=== PATIENT | female | born 1955 | race Caucasian/White ===

== ENCOUNTER 2017-01-29 05:17 | Emergency (ER) | payer OTHER ==
[~2017-01-29] VITALS: Ht 157.5 cm; Wt 43.0 kg
[~2017-01-29 05:17] MED LIST: ALBU8.5H3 INH; AZIT250T94 PO; BECL8.7A INH; PRED20TA PO; TRAM50TA2 PO
[2017-01-29 05:21] VITALS: Ht 157.5 cm; Wt 43.0 kg
[2017-01-29] MEDS ORDERED: ALBUTEROL 0.083% (NEB) 2.5 MG/3 ML AMP HHN STA (05:29)
[2017-01-29] MEDS ORDERED: IPRATROPIUM (NEB) 0.5 MG/2.5 ML AMP HHN ONE (05:30)
[2017-01-29] MEDS ORDERED: ALBU8.5H3 INH (05:39)
[2017-01-29] MEDS ORDERED: BECL8.7A INH (05:39)
[2017-01-29] MEDS ORDERED: PRED20TA PO (05:39)
--- NOTE | 2017-01-29 05:43 | ERD ---
ER Documentation Chief Complaint Date/Time DATE: 01/29/17 TIME: 05:41 Chief Complaint cough/congestion x 2 days. wheezing both lungs (ANN MACKAY PA-C) HPI 61-year-old female with a history of asthma comes emergency department with URI symptoms for the past 2 days and exacerbation of her asthma symptoms. Patient reports that she uses her albuterol inhaler approximately 2 times a day and continues to have wheezing. She denies chest pain or fevers or chills. (ANN MACKAY PA-C) ROS All systems reviewed and are negative except as per history of present illness. (ANN MACKAY PA-C) Medications Home Meds Active Scripts Azithromycin* (Zithromax*) 500 Mg Tablet, 500 MG PO DAILY for 5 Days, TAB Prov:MARIUSZ THOMAS PA-C 01/29/17 Albuterol Sulfate* (Proair HFA*) 8.5 Gm Hfa.aer.ad, 2 PUFF INH Q4, #1 INHALER Prov:ANN MACKAY PA-C 01/29/17 Azithromycin* (Zithromax*) 250 Mg Tablet, 250 MG PO .ZPACK DIRECTED, #6 TAB TAKE 500 MG (2 TABS) THE FIRST DAY THEN 250 MG (1 TAB) DAYS 2-5 Prov:ANN MACKAY PA-C 08/12/16 Albuterol Sulfate* (Proair HFA*) 8.5 Gm Hfa.aer.ad, 2 PUFF INH Q4, #1 INHALER Prov:ANN MACKAY PA-C 08/12/16 Tramadol HCl (Tramadol HCl) 50 Mg Tablet, 50 MG PO Q4 Y for PAIN, #16 TAB Prov:IZABELLA CARLISLE MD 12/27/15 Azithromycin* (Zithromax*) 250 Mg Tablet, 250 MG PO .ZPACK DIRECTED, #6 TAB TAKE 500 MG (2 TABS) THE FIRST DAY THEN 250 MG (1 TAB) DAYS 2-5 Prov:IZABELLA CARLISLE MD 12/27/15 Prednisone* (Prednisone*) 20 Mg Tab, 40 MG PO DAILY for 3 Days, TAB Start 12/28/2015 Prov:IZABELLA CARLISLE MD 12/27/15 Prednisone* (Prednisone*) 20 Mg Tab, 60 MG PO DAILY for 4 Days, TAB Prov:BARBARA MATTHEWS MD 07/20/15 Azithromycin* (Zithromax*) 250 Mg Tablet, 250 MG PO DAILY for 4 Days, TAB Prov:BARBARA MATTHEWS MD 07/20/15 Reported Medications Beclomethasone Dip* (Qvar 40*) 7.3 Gm Inha, 2 PUFF INH BID, INH 07/20/15 Allergies Allergies: Coded Allergies: hydrocodone (Verified Allergy, Unknown, "FEELS LIKE POISON", 01/29/17) PMhx/Soc History of Surgery: Yes (TUMORS REMOVED FROM BOTH LUNGS) Anesthesia Reaction: No Hx Neurological Disorder: No Hx Respiratory Disorders: Yes (ASTHMA) Hx Cardiac Disorders: No Hx Psychiatric Problems: No Hx Miscellaneous Medical Probl: No Hx Alcohol Use: No Hx Substance Use: No Hx Tobacco Use: No Smoking Status: Never smoker (ANN MACKAY PA-C) Physical Exam Vitals Vital Signs Date Time Temp Pulse Resp B/P Pulse Ox O2 Delivery O2 Flow Rate FiO2 01/29/17 06:16 98.2 89 24 129/89 97 Room Air 01/29/17 05:34 70 18 96 21 01/29/17 05:21 97.8 65 20 111/66 97 (MARIUSZ THOMAS PA-C) Physical Exam General: Well-developed, well-nourished. The patient appears in no acute distress. HEENT: Head is normocephalic, atraumatic. No scleral icterus. Neck: Supple. Nontender. Lungs: Wheezing bilaterally, dry cough noted on exam. There is no labored breathing. No tachypnea. Heart: Regular rate and rhythm. S1 and S2 are normal. No murmurs, gallops, or rubs. Abdomen: Nondistended. Extremities: No clubbing or cyanosis. Moving extremities x 4. No weakness. Neurologic: Alert and oriented 3. No focal deficits. Normal speech and gait. Skin: Normal turgor. No rash or lesions. (NAN MACKAY PA-C) Results 24 hrs Current Medications Medications (Trade) Dose Ordered Sig/Wilian Route PRN Reason Start Time Stop Time Status Last Admin Dose Admin Albuterol (Proventil 0.083% (Neb)) 7.5 mg ONCE STAT HHN 01/29/17 05:29 01/29/17 05:31 DC 01/29/17 05:34 Ipratropium Munson (Atrovent 0.02% (Neb)) 0.5 mg ONCE ONCE HHN 01/29/17 05:30 01/29/17 05:31 DC 01/29/17 05:34 Prednisone (Prednisone) 40 mg ONCE ONCE PO 01/29/17 06:00 01/29/17 06:01 DC 01/29/17 05:38 (MARIUSZ THOMAS PA-C) Procedures/MDM ED course: She was given albuterol 7.5 mg neb solution, as well as Atrovent 0.5 mg. Chest x-ray shows a pulmonary nodule, I have notified the patient of these results. She states that she does see her primary care doctor however because they have moved location she has not been able to see them over 2 months. She is not sure she can get an appointment soon and at this time she requests to get a CT scan in the emergency department. MDM: The patient is a 61-year-old female with a history of asthma who comes in with an acute upper respiratory infection, presumed viral, also comes in with a mild asthma exacerbation. Patient had incidental finding of 2 pulmonary nodules , she states that she is not sure she has primary care follow-up therefore CT scan was ordered of the chest in the ER at this time. Results will be signed out to Mariusz Thomas PA-C. The patient has a differential diagnosis of a viral upper respiratory infection, bacterial upper respiratory infection, bronchitis, pneumonia, pharyngitis, laryngitis, epiglottitis, croup, pneumonia. Patient had a repeat pulmonary examination is normal and she reports improvement of her symptoms, clear breath sounds, normal pulse oximetry, with no corrective measures needed at this time. Fluids, rest, antipyretics were encouraged. (ANN MACKAY PA-C) This is 61 year old female with history of asthma that was passed down from KIAH Mackay presenting to the emergency department with shortness of breath and cough. CXR was done and radiologist stated- probable chronic interstitial lung disease. Possible 1.1 cm right lung nodule. Possible left lower lobe lung nodule also seen. CT is recommended for further evaluation. - therefore a CT of the chest was done. Radiologist stated: Scattered nodular and reticular opacities bilaterally with bronchiectasis. 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 There are areas of distal mucus plugging especially within the right middle lobe and lingula. I have consulted my supervising physician in regards to the CT findings of nodular and reticular opacities, probable MAC infection. He suggested to place patient on azithromycin 500 mg for the next 5 days and given a prescription for albuterol and have her follow-up with her primary care physician within next couple days for bronchial cultures. I have discussed the condition with the patient and patient states that she will be able to follow- up with her primary care physician in the next couple days. I discussed with her to return to the ER for any worsening signs or symptoms. At disposition, patient has stable vital signs. She stable for discharge her home. Discussed return to the ER for any worsening sinus symptoms. She understands and agrees with this plan (MARIUSZ THOMAS PA-C) Departure Diagnosis: Primary Impression: Asthma exacerbation Additional Impression: Pulmonary nodule Condition: Good Patient Instructions: Asthma Medications Referrals: [facility] (PCP) Additional Instructions: Llame al doctor MAANA y manuel jack LOVE PARA DENTRO DE 1-2 ANDERSON.Dgale a la secretaria que nosotros le instruimos hacer esta love.Avise o llame si brambila condicin se empeora antes de la love. Regresa aqui si peor o no mejor. ANN MACKAY PA-C January 29, 2017 05:43 MARIUSZ THOMAS PA-C January 29, 2017 08:08
[2017-01-29] MEDS ORDERED: predniSONE 20 MG TAB PO ONE (06:00)
[2017-01-29 06:16] VITALS: BP 129/89; PULSE 89; RESP 24; TEMP 98.2
--- NOTE | 2017-01-29 06:18 | RADRPT ---
PROCEDURE: XR Chest. CLINICAL INDICATION: Cough, asthma TECHNIQUE: Portable single view of the chest COMPARISON: 08/12/2016 FINDINGS: The heart size remains within normal limits. Diffusely increased interstitial markings and peribron chial thickening is again seen. Nodular opacities in the upper lobes are likely similar to prior. Asymmetric nipple shadows are again seen. No definite acute infiltrate, pleural effusion, or overt congestive heart failure. 1.1 cm nodular density in the lateral right lung inferior to the level of the hilum is again seen. This does not appear to represent the patient's nipple. A clip overlies the lower left paraspinal region. Increased soft tissue density along the lateral left heart border is also again seen and could represent an underlying lung nodule as well. IMPRESSION: Probable chronic interstitial lung disease. Possible 1.1 cm right lung nodule. Possible left lower lobe lung nodule also seen. CT is recommended for further evaluation. Results were called to Teena Mackay Pa-c at 01/29/2017 6:15:38 AM RPTAT: HLBE Physician Natalie Date Time Electronically viewed and signed by Tahira Weinstein Physician on 01/29/2017 06:17 LE/
--- NOTE | 2017-01-29 06:51 | RADRPT ---
PROCEDURE: CT Chest without contrast. CLINICAL INDICATION: Shortness of breath. TECHNIQUE: CT scan of the chest was performed on a multi-detector high-resolution CT scanner. Co ntiguous axial images were obtained from the lung apices to the upper abdomen without intravenous co ntrast. Coronal and sagittal reformatted images were also obtained. Images were reviewed on the [employer] workstation. One or more of the following dose reduction techniques were used: - Automated exposure control. - Adjustment of the mA and/or kV according to patient size. - Use of iterative reconstruction technique. Exam CTD/vol = 2.83 mGy. Total exam DLP = 113.36 mGy-cm. COMPARISON: Correlation is made with the chest x-ray done 01/29/2017. FINDINGS: The visualized thyroid gland is unremarkable. There are no enlarged axillary lymph nodes. There ar e no enlarged mediastinal or hilar lymph nodes; however, study limited by lack of intravenous contra st. The heart and aorta are unremarkable. There is no pericardial thickening or effusion. There are scattered nodular and reticular opacities bilaterally. There are mild bronchiectatic barrios ges bilaterally especially within the right middle lobe and lingula with distal mucus plugging. Ther e is no pleural effusion. The osseous structures are unremarkable. Limited evaluation of the upper abdomen is unremarkable. IMPRESSION: Scattered nodular and reticular opacities bilaterally with bronchiectasis. Findings are compatible w ith Mycobacterium avium-intracellulare infection. There are areas of distal mucus plugging especial ly within the right middle lobe and lingula. .Roni Lopez MD, MD Date Time Electronically viewed and signed by .Roni Lopez MD, MD on 01/29/2017 06:51 .T/
[2017-01-29] MEDS ORDERED: AZIT500T3 PO (07:07)
== END 2017-01-29 07:15 | disposition home or self-care (01) ==
LOC: FTE 05:17
DX: J45.901 Unspecified asthma with (acute) exacerbation (principal); R91.8 Other nonspecific abnormal finding of lung field
CPT/HCPCS: 71010; 71250; 94664; J7512; Z7502; Z7610

== ENCOUNTER 2018-02-01 21:46 | Inpatient (IN) | END 2018-02-04 13:32 | disposition home or self-care (01) | DRG 190 ==

== ENCOUNTER 2018-02-08 15:36 | Outpatient (CLI) | END 2018-02-08 16:10 | disposition home or self-care (01) ==

== ENCOUNTER 2018-02-23 15:04 | Outpatient (CLI) | END 2018-02-23 15:55 | disposition home or self-care (01) ==

== ENCOUNTER 2019-01-26 10:32 | Emergency (ER) | payer OTHER ==
[~2019-01-26] VITALS: Ht 152.4 cm; Wt 47.0 kg
[~2019-01-26 10:32] MED LIST changes: +ACET325T40 PO; -ALBU8.5H3 INH; +ALBU8.5H8 INH; -AZIT250T94 PO; +GUAI120S25 PO; -PRED20TA PO
[2019-01-26 10:36] VITALS: Ht 152.4 cm; Wt 47.0 kg
[2019-01-26] MEDS ORDERED: ONDANSETRON 4 MG INJ IV STA ×2 (11:17→14:01)
[2019-01-26] MEDS ORDERED: SOD CHLORIDE 0.9% 1,000 ML IV STA (11:17)
[2019-01-26] MEDS ORDERED: HYDROmorphONE 1 MG/ML SYG IV STA (11:17)
[2019-01-26] MEDS ORDERED: IOHEXOL 300MG/ML 150 ML BTL ONE (11:45)
[2019-01-26] MEDS ORDERED: SOD CHLORIDE 0.9% 100 ML ONE (11:45)
[2019-01-26] MEDS ORDERED: IODIXANOL LOCM 100 ML BTL ONE (11:49)
[2019-01-26] MEDS ORDERED: ALBU18HF INHALATION (12:26)
--- NOTE | 2019-01-26 14:21 | ERD ---
ER Documentation Chief Complaint Chief Complaint Complains of abdominal pain, weakness and dizziness x 3 days HPI This is a 63-year-old female with a history of asthma complaining of diffuse abdominal pain described as crampy over the course of this morning. She also feels generalized fatigue and occasional dizziness. Denies any headache, focal neurological complaints, chest pain shortness of breath no fever no dysuria no back pain ROS All systems reviewed and are negative except as per history of present illness. Medications Home Meds Reported Medications Albuterol Sulfate* (Ventolin HFA*) 18 Gm Hfa.aer.ad, 2 PUFF INHALATION Q4H, #1 INHALER 01/26/19 Discontinued Reported Medications Beclomethasone Dip* (Qvar 40*) 7.3 Gm Inha, 2 PUFF INH BID, INH 07/20/15 Discontinued Scripts Jostnpyqxbm-M-Tlccixzpdd Hb* (Guaifenesin* DM Syrup) 120 Ml Syrup, 10 ML PO Q4H PRN for COUGH for 1 Day otc Prov:NKECHI HENRY MD 02/04/18 Acetaminophen (MAPAP) 325 Mg Tablet, 650 MG PO Q6H PRN for PAIN LEVEL 1-3 OR F EVER for 1 Day, TAB otc Prov:NKECHI HENRY MD 02/04/18 Albuterol Sulfate* (Proair HFA*) 8.5 Gm Hfa.aer.ad, 2 PUFF INH Q4, #1 INHALER Prov:ANN CASILLAS PA-C 08/12/16 Tramadol HCl (Tramadol HCl) 50 Mg Tablet, 50 MG PO Q4 PRN for PAIN, #16 TAB Prov:IZABELLA CARLISLE MD 12/27/15 Allergies Allergies: Coded Allergies: hydrocodone (Verified Allergy, Unknown, "FEELS LIKE POISON", 01/26/19) severe nausea and headache PMhx/Soc History of Surgery: Yes (had tumors removed from lungs 2006 and 2010) Anesthesia Reaction: Yes (NAUSEA, DIZZINESS, AND HEADACHE) Hx Neurological Disorder: No Hx Respiratory Disorders: Yes (asthma) Hx Cardiac Disorders: No Hx Psychiatric Problems: No Hx Miscellaneous Medical Probl: No Hx Alcohol Use: Yes Hx Substance Use: No Hx Tobacco Use: No Smoking Status: Never smoker FmHx Family History: No coronary disease Physical Exam Vitals Vital Signs Date Temp Pulse Resp B/P (MAP) Pulse Ox O2 O2 Flow FiO2 Time Delivery Rate 01/26/19 97.0 65 20 130/79 99 10:36 (96) Physical Exam Const: Well-developed, well-nourished Head: Atraumatic, normocephalic Eyes: Normal Conjunctiva, PERRLA, EOMI, normal sclera, no nystagmus ENT: Normal External Ears, Nose and Mouth, moist mucus membranes. Neck: Full range of motion. No meningismus, no lymphadenopathy. Resp: Clear to auscultation bilaterally, no wheezing, rhonchi, rales Cardio: Regular rate and rhythm, no murmurs, S1 S2 present Abd: Soft, diffuse tenderness is mild and is more localized pain in the right upper quadrant, non distended. Normal bowel sounds, no guarding or rebound, no pulsitile abdominal masses or bruits Skin: No petechiae or rashes, no ecchymosis , no maculopapular rash Back: No midline or flank tenderness Ext: No cyanosis, or edema, FROM x 4, normal inspection, neurovascularly intact x 4 Neur: Awake and alert, STR 5/5 x 4, sensation intact x 4, no focal findings, cerebellum intact Psych: Normal Mood and Affect Result Diagram: 01/26/19 1134 01/26/19 1134 Results 24 hrs Laboratory Tests Test 01/26/19 11:34 White Blood Count 10.3 10^3/ul Red Blood Count 4.69 10^6/ul Hemoglobin 13.6 g/dl Hematocrit 42.5 % Mean Corpuscular Volume 90.6 fl Mean Corpuscular Hemoglobin 29.0 pg Mean Corpuscular Hemoglobin Concent 32.0 g/dl Red Cell Distribution Width 12.4 % Platelet Count 284 10^3/UL Mean Platelet Volume 9.6 fl Immature Granulocytes % 0.300 % Neutrophils % 83.1 % Lymphocytes % 12.1 % Monocytes % 4.0 % Eosinophils % 0.2 % Basophils % 0.3 % Nucleated Red Blood Cells % 0.0 /100WBC Immature Granulocytes # 0.030 10^3/ul Neutrophils # 8.6 10^3/ul Lymphocytes # 1.3 10^3/ul Monocytes # 0.4 10^3/ul Eosinophils # 0.0 10^3/ul Basophils # 0.0 10^3/ul Nucleated Red Blood Cells # 0.0 10^3/ul Sodium Level 143 mmol/L Potassium Level 4.0 mmol/L Chloride Level 106 mmol/L Carbon Dioxide Level 29 mmol/L Anion Gap 8 Blood Urea Nitrogen 14 mg/dl Creatinine 0.69 mg/dl Est Glomerular Filtrat Rate mL/min > 60 mL/min Glucose Level 106 mg/dl Calcium Level 9.4 mg/dl Total Bilirubin 0.3 mg/dl Direct Bilirubin 0.00 mg/dl Indirect Bilirubin 0.3 mg/dl Aspartate Amino Transf (AST/SGOT) 28 IU/L Alanine Aminotransferase (ALT/SGPT) 24 IU/L Alkaline Phosphatase 116 IU/L Total Protein 7.7 g/dl Albumin 4.0 g/dl Globulin 3.70 g/dl Albumin/Globulin Ratio 1.08 Lipase 89 U/L Current Medications Medications Dose Sig/Wilian Start Time Status Last (Trade) Ordered Route PRN Stop Time Admin Dose Reason Admin Sodium 1,000 ml @ Q1H STAT 01/26/19 DC 01/26/19 Chloride 1,000 mls/hr IV 11:17 12:55 01/26/19 12:16 1 mg ONCE STAT 01/26/19 DC 01/26/19 Hydromorphone IV 11:17 12:55 HCl 01/26/19 11:19 (Dilaudid) Ondansetron 4 mg ONCE STAT 01/26/19 DC 01/26/19 HCl (Zofran IV 11:17 12:55 Inj) 01/26/19 11:19 IV Flush 10 ml STK-MED 01/26/19 DC 01/26/19 (NS 10 ml) ONCE .ROUTE 11:45 12:45 01/26/19 11:46 Sodium 100 ml @ ud STK-MED 01/26/19 DC 01/26/19 Chloride ONCE .ROUTE 11:45 12:45 01/26/19 11:46 Iohexol 150 ml STK-MED 01/26/19 DC (Omnipaque ONCE .ROUTE 11:45 300mg/ ml) 01/26/19 11:46 Iodixanol 100 ml STK-MED 01/26/19 DC 01/26/19 (Visipaque ONCE .ROUTE 11:49 12:45 Locm) 01/26/19 11:50 Ondansetron 4 mg ONCE STAT 01/26/19 DC 01/26/19 HCl (Zofran IV 14:01 14:06 Inj) 01/26/19 14:03 Procedures/MDM [place] [id number] Radiology Main Line: [phone] DIAGNOSTIC IMAGING REPORT Patient: ALBERTO BERRY : 1955 Age: 63 Sex: F MR #: [id number] DOS: 01/26/19 1117 Ordering MD: RONNELL HARDIN DO Location: E/R Room/Bed: PROCEDURE: US Abdomen. CLINICAL INDICATION: abdominal pain TECHNIQUE: Multiple real-time images were acquired of the patient's right upper quadrant abdomen and retroperitoneum utilizing a high resolution transducer. COMPARISON: CT CHEST 01/29/2017; US ABDOMEN 04/15/2014 FINDINGS: The liver demonstrates normal echogenicity. The liver is normal in size and no focal solid lesions are seen. The liver measures 13.6 cm in length. The portal vein is patent with normal direction of flow. No intrahepatic biliary dilatation is seen. No gallstones are identified within the gallbladder. There is no pericholecystic fluid or gallbladder wall thickening. The common bile duct measures 4 mm in maximal dimension. The visualized portions of the pancreas are unremarkable. The tail of the pancreas is not seen. No free fluid is identified. The right kidney is normal in size, and demonstrate normal echogenicity and cortical thickness. The right kidney measures 10.2 cm in long dimension. There is minimal right-sided hydronephrosis. There are no kidney stones. RPTAT: AA IMPRESSION: Minimal right-sided hydronephrosis. No evidence of gallstones. .Amado Donaldson MD, MD Date Time Electronically viewed and signed by .Amado Donaldson MD, MD on 01/26/2019 12:43 .S/ CC: RONNELL HARDIN DO [id number] [place] [address] Radiology Main Line: [phone] DIAGNOSTIC IMAGING REPORT Patient: ALBERTO BERRY : 1955 Age: 63 Sex: F MR #: [id number] [facility] #: [id number] DOS: 01/26/19 1117 Ordering MD: RONNELL HARDIN DO Location: E/R Room/Bed: PROCEDURE: CT Abdomen and Pelvis with contrast CLINICAL INDICATION: Abdominal pain TECHNIQUE: Transaxial computed tomographic images of the abdomen and pelvis were obtained following the uneventful administration of 80 mL Visipaque 320 intravenous contrast according to standard protocol. Coronal and sagittal reformatted images were provided. DICOM images are available. Radiation dose: CTDIvol (mGy) = 4.43; total DLP (mGy.cm) = 230.92. One or more of the following dose reduction techniques were used: - Automated exposure control. - Adjustment of the mA and/or kV according to patient size. - Use of iterative reconstruction technique. COMPARISON: No prior CT, correlation made with abdominal ultrasound performed on the same date. FINDINGS: Scattered ground-glass and tree in bud opacities are seen in the lower lobes, partially imaged. Bronchiectasis and bronchial wall thickening is partially visualized in the lingula. There is suggestion of mucus plugging in the lingula. These findings were present on the prior examination of 01/29/2017 have significantly decreased. There is no pleural effusion. The liver enhances homogeneously. A few subcentimeter hypoattenuating lesions in the liver are too small to characterize but may represent cysts and were present on the prior exam. The gallbladder, spleen, pancreas, adrenal glands, and kidneys are normal. There is no evidence of intestinal obstruction. Evaluation of the bowel is suboptimal due to motion artifact. There is suggestion of thick-walled appearance of segments of ascending colon which could relate to incomplete distension. The appendix is not definitely seen due to motion artifact. There is no free intraperitoneal air. There is trace free fluid in the pelvis. There is no suspicious mesenteric or retroperitoneal lymphadenopathy. The abdominal aorta is of normal diameter. Urinary bladder is normal. The uterus is present. The osseous structures of the abdomen and pelvis are intact. IMPRESSION: 1. Scattered ground-glass and tree in bud opacities in the visualized lower lobes are partially imaged and may represent chronic infection or aspiration. 2. Mucus plugging and bronchiectasis in the lingula is also sequela of chronic infection. Mycobacterium avium-intracellulare infection is within the differential. 3. No bowel obstruction. Thick-walled appearance of a segment of the ascending colon is incompletely evaluated due to respiratory motion artifact and may relate to nondistended state. 4. Trace free pelvic fluid. RPTAT: AAEE Shira Acosta Physician Date Time Electronically viewed and signed by Shira Acosta Physician on 01/26/2019 13:15 RF/ CC: RONNELL HARDIN DO [id number] The patient on her scan of the abdomen shows that she has some chronic basilar groundglass appearance which is likely a chronic infection including some plugging in the lingula which is consistent with chronic infection. She may have any typical infectious process going on she does not have any fever or cough. I will treat her with some Zithromax and have her follow-[facility] as she may need a prolonged course of some antibiotics. There is no acute process going on with her abdominal CT. Ultrasound is unremarkable. Her right upper quadrant pain may be due to a gastric etiology/duodenal etiology, or may have gallbladder dysfunction We will cover her with some Bentyl and brief course of PPIs as well Departure Diagnosis: Primary Impression: Abdominal pain Abdominal location: right upper quadrant Qualified Codes: R10.11 - Right upper quadrant pain Additional Impression: Ground glass opacity present on imaging of lung Condition: Stable RONNELL HARDIN DO January 26, 2019 14:21
[2019-01-26] MEDS ORDERED: AZIT250T PO (14:23)
[2019-01-26] MEDS ORDERED: DICY10CA40 PO (14:23)
[2019-01-26] MEDS ORDERED: OMEP40CA6 PO (14:23)
[2019-01-26] MEDS ORDERED: METOCLOPRAMIDE 10 MG INJ IV ONE (14:30)
[2019-01-26] MEDS ORDERED: LORAZEPAM 2 MG INJ IV ONE (15:30)
[2019-01-26 16:01] VITALS: BP 119/61; PULSE 65; RESP 18
== END 2019-01-26 16:05 | disposition home or self-care (01) ==
LOC: E/R 10:32
DX: R10.11 Right upper quadrant pain (principal); J45.909 Unspecified asthma, uncomplicated; R91.8 Other nonspecific abnormal finding of lung field
CPT/HCPCS: 36415; 74177; 76705; 80053; 83690; 85025; 96361; 96374; 96375; 96376; J1170; J2060; J2405; J2765; J7030; Q9967; Z7502; Z7610